=== PATIENT | male | born 1970 | race Hispanic/Latino ===

== ENCOUNTER 2017-11-15 01:36 | Emergency (ER) | payer SELFPAY ==
[2017-11-15 04:09] LABS: BASOPHILS % (AUTO) 0.3 % (0.0-5.0); EOSINOPHILS % (AUTO) 0.2 % (0.0-8.0); HEMATOCRIT 37.4 % (42-54); LYMPHOCYTES % (AUTO) 29.3 % (21.0-51.0); MEAN CORPUSCULAR HEMOGLOBIN 30.4 pg (27.0-33.0); MEAN CORPUSCULAR HGB CONC 34.3 g/dL (32.0-36.0); MEAN CORPUSCULAR VOLUME 88.8 fL (79-99); MONOCYTES % (AUTO) 2.9 % (3.0-13.0); NEUTROPHILS % (AUTO) 67.3 % (40.0-77.0); NUCLEATED RED BLOOD CELLS 0.1 % (0.0-0.19); PLATELET COUNT (AUTO) 321 K/uL (130-400); RED BLOOD CELL COUNT(AUTO) 4.21 MIL/uL (4.50-6.20); RED CELL DISTRIBUTION WIDTH 13.9 % (11.0-15.5); WHITE BLOOD COUNT (AUTO) 10.7 K/uL (4.8-10.8)
[2017-11-15 04:19] LABS: CREATININE 0.5 mg/dL (0.5-1.5); POTASSIUM 3.6 mmol/L (3.5-5.1)
[2017-11-15 04:27] LABS: ALBUMIN 3.3 g/dL (3.5-5.0); BILIRUBIN,TOTAL 0.5 mg/dL (0.2-1.0); TOTAL PROTEIN, SERUM 7.3 g/dL (6.0-8.3)
[2017-11-15] MEDS ORDERED: TETANUS/DIPHTHERIA TOXOID [ADULT] 0.5 ML VIAL IM ONE (05:10)
[2017-11-15] MEDS ORDERED: ACETAMINOPHEN 325 MG TAB ONE (08:13)
[2017-11-15] MEDS ORDERED: SODIUM CHLORIDE 0.9% 1000ML 2,000 ML IV ONE (08:14)
[2017-11-15] MEDS ORDERED: THIAMINE HCL 100 MG/ML 2ML VIAL ONE (08:14)
[2017-11-15 11:05] LABS: CREATININE 0.5 mg/dL (0.5-1.5); POTASSIUM 3.3 mmol/L (3.5-5.1)
== END 2017-11-15 16:29 | disposition left against medical advice (07) ==
LOC: EDH 01:36
DX: S90.01XA Contusion of right ankle, initial encounter (principal); S80.212A Abrasion, left knee, initial encounter; S80.211A Abrasion, right knee, initial encounter; M25.521 Pain in right elbow; M79.631 Pain in right forearm; F31.9 Bipolar disorder, unspecified; I10 Essential (primary) hypertension; Z72.0 Tobacco use; V29.9XXA Motorcycle rider (driver) (passenger) injured in unspecified traffic accident, initial encounter; Y93.89 Activity, other specified; Y92.89 Other specified places as the place of occurrence of the external cause; Y99.8 Other external cause status
CPT/HCPCS: 36415; 73560; 73610; 80048; 80053; 85025; 90471; 90714; 96365; 99285; G0480 ×2; J3411; J7030

== ENCOUNTER 2018-02-10 18:18 | Emergency (ER) | payer OTHER ==
[2018-02-10] MEDS ORDERED: ONDANSETRON ODT 4 MG TAB ONE (18:39)
[2018-02-10] MEDS ORDERED: DICYCLOMINE HCL 10 MG/ML 2ML AMP IM ONE (18:40)
[2018-02-10] MEDS ORDERED: HYDROXYZINE HCL 25 MG TABLET ONE (18:41)
== END 2018-02-10 19:12 | disposition home or self-care (01) ==
LOC: EDH 18:18
DX: F41.1 Generalized anxiety disorder (principal); F10.10 Alcohol abuse, uncomplicated; F31.9 Bipolar disorder, unspecified; I10 Essential (primary) hypertension; Z72.0 Tobacco use
CPT/HCPCS: 93005; 96372; 99284; J0500

== ENCOUNTER 2019-01-30 01:47 | Inpatient (IN) | payer OTHER ==
[~2019-01-30] VITALS: Ht 177.8 cm; Wt 86.4 kg
[2019-01-30] MEDS ORDERED: IOHEXOL-350 50ML VIAL IV ONE (02:53)
[2019-01-30] MEDS ORDERED: ZOSYN 3.375GM+NS 50ML 50 ML IV ONE (02:53)
[2019-01-30 02:56] LABS: BASOPHILS % (AUTO) 0.9 % (0.0-5.0); EOSINOPHILS % (AUTO) 0.2 % (0.0-8.0); HEMATOCRIT 42.3 % (42-54); LYMPHOCYTES % (AUTO) 22.7 % (21.0-51.0); MEAN CORPUSCULAR HEMOGLOBIN 31.8 pg (27.0-33.0); MEAN CORPUSCULAR HGB CONC 35.5 g/dL (32.0-36.0); MEAN CORPUSCULAR VOLUME 89.5 fL (79-99); MONOCYTES % (AUTO) 6.3 % (3.0-13.0); NEUTROPHILS % (AUTO) 69.9 % (40.0-77.0); PLATELET COUNT (AUTO) 181 K/uL (130-400); RED BLOOD CELL COUNT(AUTO) 4.72 MIL/uL (4.50-6.20); RED CELL DISTRIBUTION WIDTH 15.4 % (11.0-15.5); WHITE BLOOD COUNT (AUTO) 9.1 K/uL (4.8-10.8)
[2019-01-30 03:05] LABS: CREATININE 0.5 mg/dL (0.5-1.5); POTASSIUM 3.6 mmol/L (3.5-5.1)
[2019-01-30 03:43] LABS: INR 1.17 (0.85-1.15); PARTIAL THROMBOPLASTIN TIME 35.5 SEC (26.3-35.5); PROTHROMBIN TIME 12.2 SEC (9.6-11.6)
[2019-01-30] MEDS ORDERED: TETANUS/DIPHTHERIA TOXOID [ADULT] 0.5 ML VIAL IM ONE (03:54)
[2019-01-30] MEDS: SODIUM CHLORIDE 0.9% 1000ML 1,000 ML IV SCH ×2 (05:43→16:13)
[2019-01-30] MEDS ORDERED: HYDROCODONE/ACETAMINOPHEN 5/325 MG TAB PO PRN (05:45)
[2019-01-30] MEDS: CLINDAMYCIN 600 MG/D5% WATER 50 ML IV SCH ×3 (05:45→22:14)
[2019-01-30] MEDS ORDERED: SODIUM CHLORIDE 0.9% 1000ML 1,000 ML IV ONE (05:49)
[2019-01-30] MEDS ORDERED: CLINDAMYCIN 600 MG/D5% WATER 50 ML IV ONE (05:53)
[2019-01-30] MEDS ORDERED: HYDROCODONE/ACETAMINOPHEN 5/325 MG TAB ONE (07:34)
[2019-01-30 13:22] VITALS: BP 163/99
[2019-01-30] MEDS: HYDROCODONE/ACETAMINOPHEN 5/325 MG TAB PO PRN ×2 (14:26→20:52)
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
[2019-01-30] MEDS ORDERED: PHARMACY COMMUNICATION MISC PRN (18:00)
[2019-01-30] MEDS ORDERED: LORAZEPAM 2 MG/ML 1 ML VIAL IVP PRN (18:00)
[2019-01-30 20:00] VITALS: BP 162/85
[2019-01-30] MEDS: CHLORDIAZEPOXIDE HCL 25 MG CAP PO PRN (22:14)
[2019-01-30 23:52] VITALS: BP 157/99
[2019-01-31 04:00] VITALS: BP 141/80
[2019-01-31] MEDS: CLINDAMYCIN 600 MG/D5% WATER 50 ML IV SCH ×3 (05:18→21:14)
[2019-01-31 05:19] LABS: BASOPHILS % (AUTO) 0.4 % (0.0-5.0); EOSINOPHILS % (AUTO) 0.2 % (0.0-8.0); HEMATOCRIT 39.4 % (42-54); MEAN CORPUSCULAR HEMOGLOBIN 30.7 pg (27.0-33.0); MEAN CORPUSCULAR HGB CONC 34.3 g/dL (32.0-36.0); MEAN CORPUSCULAR VOLUME 89.5 fL (79-99); MONOCYTES % (AUTO) 6.7 % (3.0-13.0); NEUTROPHILS % (AUTO) 75.7 % (40.0-77.0); PLATELET COUNT (AUTO) 113 K/uL (130-400); RED CELL DISTRIBUTION WIDTH 15.6 % (11.0-15.5); WHITE BLOOD COUNT (AUTO) 5.8 K/uL (4.8-10.8)
[2019-01-31] MEDS: SODIUM CHLORIDE 0.9% 1000ML 1,000 ML IV SCH ×2 (05:19→17:00)
[2019-01-31 05:34] LABS: CREATININE 0.5 mg/dL (0.5-1.5); POTASSIUM 3.4 mmol/L (3.5-5.1)
[2019-01-31 07:30] VITALS: BP 159/91
[2019-01-31] MEDS ORDERED: POTASSIUM CHLORIDE 10% ELIXIR 20 MEQ/15 ML UDCUP PO PRN (07:30)
[2019-01-31] MEDS ORDERED: POTASSIUM CHLORIDE 10MEQ/100ML 100 ML IV PRN (07:30)
[2019-01-31] MEDS ORDERED: LIDOCAINE HCL-MPF 1% 2ML VIAL IVP PRN (07:30)
[2019-01-31] MEDS ORDERED: PROMETHAZINE HCL 25 MG TABLET PO PRN (09:00)
[2019-01-31] MEDS ORDERED: ACETAMINOPHEN EXTRA STRENGTH 500 MG TABLET PO PRN (09:00)
[2019-01-31] MEDS ORDERED: ONDANSETRON HCL 4 MG/2 ML VIAL IV PRN (09:00)
[2019-01-31] MEDS ORDERED: ONDANSETRON HCL 4 MG/2 ML VIAL ONE (09:03)
[2019-01-31] MEDS: POTASSIUM CHLORIDE 20 MEQ ERTAB PO PRN ×2 (09:04→13:27)
[2019-01-31] MEDS: HYDROCODONE/ACETAMINOPHEN 5/325 MG TAB PO PRN ×4 (09:05→23:42)
[2019-01-31] MEDS ORDERED: LISI-613 PO (10:57)
[2019-01-31 11:00] VITALS: BP 149/99
--- NOTE | 2019-01-31 15:17 | NUR ---
JULIA JAMES PA FOR DR. RICO PER PA, DR. RICO WILL NOT DO INTERVENTIONS ON PATIENT. RECOMMENDATIONS FOR PLASTIC SURGEON OR ANOTHER SURGEON WHO WILL WORK ON FACIAL CELLULITIS. WILL CALL PCP AND INFORM ABOUT RECOMMENDATIONS. WILL MONITOR PT CLOSELY. WOUND CULTURE OBTAIN FROM DRAINING SITE FROM RIGHT FACE/CHEEK.
[2019-01-31 16:00] VITALS: BP 158/98
[2019-01-31] MEDS: HYDRALAZINE HCL 20 MG/ML VIAL IV PRN (16:57)
[2019-01-31 20:00] VITALS: BP_SYST 139; BP_DIAS 65; BP_DIAS 86
[2019-01-31] MEDS: CHLORDIAZEPOXIDE HCL 25 MG CAP PO PRN (21:40)
[2019-02-01] VITALS (7 sets, daily range): BP systolic 136–163; BP diastolic 75–97
[2019-02-01 04:49] LABS: BASOPHILS % (AUTO) 0.3 % (0.0-5.0); EOSINOPHILS % (AUTO) 0.7 % (0.0-8.0); HEMATOCRIT 38.3 % (42-54); LYMPHOCYTES % (AUTO) 22.5 % (21.0-51.0); MEAN CORPUSCULAR HEMOGLOBIN 31.4 pg (27.0-33.0); MEAN CORPUSCULAR HGB CONC 34.6 g/dL (32.0-36.0); MEAN CORPUSCULAR VOLUME 90.7 fL (79-99); MONOCYTES % (AUTO) 5.2 % (3.0-13.0); NEUTROPHILS % (AUTO) 71.3 % (40.0-77.0); PLATELET COUNT (AUTO) 104 K/uL (130-400); RED BLOOD CELL COUNT(AUTO) 4.22 MIL/uL (4.50-6.20); RED CELL DISTRIBUTION WIDTH 15.5 % (11.0-15.5); WHITE BLOOD COUNT (AUTO) 4.2 K/uL (4.8-10.8)
[2019-02-01 04:51] LABS: CREATININE 0.5 mg/dL (0.5-1.5); POTASSIUM 3.8 mmol/L (3.5-5.1)
[2019-02-01] MEDS: CLINDAMYCIN 600 MG/D5% WATER 50 ML IV SCH ×3 (05:20→21:45)
[2019-02-01] MEDS: HYDROCODONE/ACETAMINOPHEN 5/325 MG TAB PO PRN ×4 (05:27→21:46)
[2019-02-01] MEDS ORDERED: TRAM50TA4 PO (06:37)
[2019-02-01] MEDS ORDERED: FAMO20TA8 PO (06:37)
[2019-02-01] MEDS ORDERED: DONE10TA43 PO (06:37)
[2019-02-01] MEDS ORDERED: AMLO5TAB9 PO (06:37)
[2019-02-01] MEDS ORDERED: LORA0.5T2 PO (06:37)
[2019-02-01] MEDS ORDERED: OLAN2.5T3 PO (06:37)
[2019-02-01] MEDS ORDERED: MULT-248 PO (06:37)
[2019-02-01] MEDS ORDERED: TYLENOL ARTHRITIS (06:37)
[2019-02-01] MEDS ORDERED: ZINC220C6 PO (06:37)
[2019-02-01] MEDS ORDERED: MENT118G TP (06:37)
[2019-02-01] MEDS: SODIUM CHLORIDE 0.9% 1000ML 1,000 ML IV SCH ×3 (08:42→20:08)
[2019-02-01] MEDS ORDERED: IOHEXOL-350 50ML VIAL IV ONE (12:22)
[2019-02-01] MEDS: CHLORDIAZEPOXIDE HCL 25 MG CAP PO PRN (21:46)
[2019-02-02 03:49] VITALS: BP 151/96
[2019-02-02 04:40] LABS: BASOPHILS % (AUTO) 0.2 % (0.0-5.0); EOSINOPHILS % (AUTO) 1.2 % (0.0-8.0); HEMATOCRIT 38.4 % (42-54); LYMPHOCYTES % (AUTO) 31.6 % (21.0-51.0); MEAN CORPUSCULAR HEMOGLOBIN 30.5 pg (27.0-33.0); MEAN CORPUSCULAR VOLUME 89.9 fL (79-99); MONOCYTES % (AUTO) 8.9 % (3.0-13.0); NEUTROPHILS % (AUTO) 58.1 % (40.0-77.0); NUCLEATED RED BLOOD CELLS 0.1 % (0.0-0.19); PLATELET COUNT (AUTO) 118 K/uL (130-400); RED BLOOD CELL COUNT(AUTO) 4.27 MIL/uL (4.50-6.20); RED CELL DISTRIBUTION WIDTH 15.3 % (11.0-15.5); WHITE BLOOD COUNT (AUTO) 3.1 K/uL (4.8-10.8)
[2019-02-02 04:41] LABS: CREATININE 0.6 mg/dL (0.5-1.5); POTASSIUM 3.7 mmol/L (3.5-5.1)
[2019-02-02] MEDS: CLINDAMYCIN 600 MG/D5% WATER 50 ML IV SCH ×3 (05:45→22:18)
[2019-02-02] MEDS: HYDROCODONE/ACETAMINOPHEN 5/325 MG TAB PO PRN ×3 (07:46→18:57)
[2019-02-02 08:02] VITALS: BP 144/99
--- NOTE | 2019-02-02 08:59 | NUR ---
DR. CLEMENCIA CLAY AWARE OF CONSULT. ORDERS PLACED FOR I&D OF RIGHT SIDE PERIORBITAL CELLULITIS FOR TOMORROW 02/03/19, STATES NO SPECIFIC TIME, WANTS TO BE CALLED BY OR WITH AVAILABLE TIMES.
[2019-02-02 11:53] VITALS: BP 147/91
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
[2019-02-02] MEDS ORDERED: PERMETHRIN CREAM 5% 60GM TUBE TP SCH (13:30)
[2019-02-02] MEDS: SODIUM CHLORIDE 0.9% 1000ML 1,000 ML IV SCH ×2 (13:53→23:04)
--- NOTE | 2019-02-02 14:30 | NUR ---
RIGHT HAND SKIN RASH PATIENT APPEARS TO HAVE SEVERAL SMALL, RED SKIN LESIONS TO ANTERIOR SIDE RIGHT HAND, AND APPEARS TO SPREAD INSIDE OF THE RIGHT HAND FINGERS. PATIENT STATES AREA DOES NOT HURT OR ITCH. REPORTED FINDING TO GUSTAVO WATSON NP FOR DR. MORALES AND HE INSPECTED PATIENTS RIGHT HAND. GUSTAVO WATSON NP TOLD PATIENT THE RASH LOOKS LIKE SCABIES. ORDERS PLACED TO PUT PATIENT ON CONTACT ISOLATION AND TOPICAL CREAMS.
[2019-02-02 16:48] VITALS: BP 147/97
[2019-02-02] MEDS: MUPIROCIN OINTMENT 22 GM TUBE TP SCH ×2 (17:32→20:11)
[2019-02-02 19:43] VITALS: BP 140/84
[2019-02-02] MEDS: MORPHINE SULFATE 2 MG/ML 1ML SYG IVP PRN (22:19)
[2019-02-02] MEDS ORDERED: HYDROCODONE/ACETAMINOPHEN 5/325 MG TAB ONE (22:57)
[2019-02-03] VITALS (22 sets, daily range): BP systolic 141–188; BP diastolic 84–111
[2019-02-03] MEDS: MORPHINE SULFATE 2 MG/ML 1ML SYG IVP PRN ×3 (05:00→14:53)
[2019-02-03] MEDS: CLINDAMYCIN 600 MG/D5% WATER 50 ML IV SCH ×3 (05:12→20:21)
[2019-02-03] MEDS: MUPIROCIN OINTMENT 22 GM TUBE TP SCH ×3 (09:00→20:27)
[2019-02-03] MEDS ORDERED: ROCURONIUM 10MG/1ML SYR 10 MG/ML ML ONE (12:45)
[2019-02-03] MEDS ORDERED: PROPOFOL 10 MG/ML 20ML VIAL IV ONE (12:45)
[2019-02-03] MEDS ORDERED: SUCCINYLCHOLINE 200MG/10ML SYR ONE ×2 (12:45→12:56)
[2019-02-03] MEDS ORDERED: LIDOCAINE PF 2% 5ML ABBOJECT ONE (12:45)
[2019-02-03] MEDS ORDERED: MIDAZOLAM HCL 1 MG/ML 2ML VIAL ONE (12:45)
[2019-02-03] MEDS ORDERED: FENTANYL CITRATE PF 50 MCG/1 ML 2ML VIAL ONE ×4 (12:45→14:01)
[2019-02-03] MEDS ORDERED: LACTATED RINGERS 1000ML 1,000 ML IV ONE (12:46)
--- NOTE | 2019-02-03 13:00 | NUR ---
DR KHANNA CALLED STATED TO PULL OUT 1-2 INCHES OF THE PACKING EVERY DAY AND KEEP PT FOR MORE A COUPLE OF DAYS FOR IV ANTIBIOTICS RECOMMENDED NEHAL FOR PT
[2019-02-03] MEDS ORDERED: CEFAZOLIN SODIUM 1 GM VIAL ONE (13:05)
[2019-02-03] MEDS: HYDRALAZINE HCL 20 MG/ML VIAL IV PRN (14:15)
[2019-02-03] MEDS: MORPHINE SULFATE 4 MG/1ML SYG IV PRN (18:52)
[2019-02-03] MEDS: SODIUM CHLORIDE 0.9% 1000ML 1,000 ML IV SCH ×2 (19:43→20:00)
--- NOTE | 2019-02-03 21:30 | NUR ---
PT WAS ATTEMPTING TO OPEN TURK PACKET, STATED HE FORGOT HE HAD THE STRING AND USED HIS RIGHT SIDE TO PULL THE PACKET AND HE PULLED PART OF THE INCISION STRING ABOUT ONE INCH. HE STARTED TO BLEED AND GAUZE AND PRESSURE WERE APPLIED TO INNER CHEEK RIGHT AREA NEAR INCISION. PT FELT SCARED AND GOT VERY ANXIOUS DUE TO THE BLEEDING. SURGEON WAS IMMEDIATELY NOTIFIED AND STATED TO APPLY PRESSURE. THAT HE WOULD NOT BE ABLE TO COME IN AT THE MOMENT.
[2019-02-03] MEDS: HYDROCODONE/ACETAMINOPHEN 5/325 MG TAB PO PRN (21:47)
--- NOTE | 2019-02-03 23:00 | NUR ---
PT IS NOW STABLE. BLEEDING HAS STOPPED. NO DISTRESS NOTED. NOROCO GIVEN PRN. DUE TO PAIN. PT AWARE THAT MORPHINE IS DUE AT 0100. SURGEON CALLED AGAIN. DR. KHANNA AND HE WAS UPDATED ON PT STATUS.
[2019-02-04] VITALS (7 sets, daily range): BP systolic 134–163; BP diastolic 81–106
[2019-02-04] MEDS: MORPHINE SULFATE 4 MG/1ML SYG IV PRN (01:18)
[2019-02-04] MEDS: SODIUM CHLORIDE 0.9% 1000ML 1,000 ML IV SCH ×2 (04:40→20:06)
[2019-02-04] MEDS: HYDROCODONE/ACETAMINOPHEN 5/325 MG TAB PO PRN ×4 (04:40→20:16)
[2019-02-04 04:45] LABS: BASOPHILS % (AUTO) 0.1 % (0.0-5.0); EOSINOPHILS % (AUTO) 0.6 % (0.0-8.0); HEMATOCRIT 38.7 % (42-54); LYMPHOCYTES % (AUTO) 24.4 % (21.0-51.0); MEAN CORPUSCULAR HEMOGLOBIN 30.4 pg (27.0-33.0); MEAN CORPUSCULAR HGB CONC 33.9 g/dL (32.0-36.0); MEAN CORPUSCULAR VOLUME 89.6 fL (79-99); MONOCYTES % (AUTO) 11.2 % (3.0-13.0); NEUTROPHILS % (AUTO) 63.7 % (40.0-77.0); PLATELET COUNT (AUTO) 108 K/uL (130-400); RED BLOOD CELL COUNT(AUTO) 4.32 MIL/uL (4.50-6.20); RED CELL DISTRIBUTION WIDTH 15.7 % (11.0-15.5); WHITE BLOOD COUNT (AUTO) 4.3 K/uL (4.8-10.8)
[2019-02-04] MEDS: CLINDAMYCIN 600 MG/D5% WATER 50 ML IV SCH ×3 (04:46→20:16)
[2019-02-04 04:55] LABS: CREATININE 0.6 mg/dL (0.5-1.5)
[2019-02-04] MEDS: MUPIROCIN OINTMENT 22 GM TUBE TP SCH ×2 (09:00→20:17)
[2019-02-04] MEDS: AMOXICILLIN/POTASSIUM CLAV 875-125 TABLET PO SCH (18:41)
[2019-02-05] MEDS: HYDROCODONE/ACETAMINOPHEN 5/325 MG TAB PO PRN ×5 (00:21→20:09)
[2019-02-05 04:09] LABS: BASOPHILS % (AUTO) 0.3 % (0.0-5.0); EOSINOPHILS % (AUTO) 1.3 % (0.0-8.0); HEMATOCRIT 37.3 % (42-54); LYMPHOCYTES % (AUTO) 29.8 % (21.0-51.0); MEAN CORPUSCULAR HEMOGLOBIN 30.9 pg (27.0-33.0); MEAN CORPUSCULAR HGB CONC 34.3 g/dL (32.0-36.0); MEAN CORPUSCULAR VOLUME 90.1 fL (79-99); MONOCYTES % (AUTO) 11.4 % (3.0-13.0); NEUTROPHILS % (AUTO) 57.2 % (40.0-77.0); PLATELET COUNT (AUTO) 94 K/uL (130-400); RED BLOOD CELL COUNT(AUTO) 4.13 MIL/uL (4.50-6.20); RED CELL DISTRIBUTION WIDTH 15.8 % (11.0-15.5); WHITE BLOOD COUNT (AUTO) 3.7 K/uL (4.8-10.8)
[2019-02-05 04:16] LABS: CREATININE 0.6 mg/dL (0.5-1.5)
[2019-02-05 04:19] VITALS: BP 137/79
[2019-02-05] MEDS: CLINDAMYCIN 600 MG/D5% WATER 50 ML IV SCH ×3 (04:32→20:07)
[2019-02-05] MEDS: AMOXICILLIN/POTASSIUM CLAV 875-125 TABLET PO SCH ×2 (04:32→16:29)
[2019-02-05 07:47] VITALS: BP 164/99
--- NOTE | 2019-02-05 09:45 | NUR ---
DRESSING CHANGE REMOVED APPROXIMATELY 2 INCHES OF IODOFORM GAUZE PACKING FROM RIGHT INNER CHEEK INCISION SITE, TRIMMED EXCESS IODOFORM PACKING AND SECURED WITH TAPE. ALSO REAPPLIED RIGHT OUTER CHEEK, CLEANSED WITH BETADINE, 4X4 GAUZE AND SECURED WITH TAPE.
[2019-02-05 11:57] VITALS: BP 132/79
[2019-02-05] MEDS: SODIUM CHLORIDE 0.9% 1000ML 1,000 ML IV SCH (12:08)
[2019-02-05] MEDS: MUPIROCIN OINTMENT 22 GM TUBE TP SCH ×3 (12:09→20:10)
[2019-02-05 15:46] VITALS: BP 140/92
[2019-02-05 19:20] VITALS: BP 151/98
[2019-02-05 23:31] VITALS: BP 142/93
[2019-02-06] MEDS: SODIUM CHLORIDE 0.9% 1000ML 1,000 ML IV SCH ×2 (00:26→07:43)
[2019-02-06] MEDS: HYDROCODONE/ACETAMINOPHEN 5/325 MG TAB PO PRN ×4 (00:27→13:59)
[2019-02-06 03:42] VITALS: BP 130/73
[2019-02-06 04:06] LABS: BASOPHILS % (AUTO) 0.4 % (0.0-5.0); EOSINOPHILS % (AUTO) 2.2 % (0.0-8.0); HEMATOCRIT 37.1 % (42-54); LYMPHOCYTES % (AUTO) 34.3 % (21.0-51.0); MEAN CORPUSCULAR HEMOGLOBIN 31.3 pg (27.0-33.0); MEAN CORPUSCULAR HGB CONC 34.7 g/dL (32.0-36.0); MEAN CORPUSCULAR VOLUME 90.2 fL (79-99); NEUTROPHILS % (AUTO) 50.1 % (40.0-77.0); NUCLEATED RED BLOOD CELLS 0.1 % (0.0-0.19); PLATELET COUNT (AUTO) 106 K/uL (130-400); RED BLOOD CELL COUNT(AUTO) 4.11 MIL/uL (4.50-6.20); RED CELL DISTRIBUTION WIDTH 15.7 % (11.0-15.5); WHITE BLOOD COUNT (AUTO) 3.1 K/uL (4.8-10.8)
[2019-02-06 04:14] LABS: CREATININE 0.6 mg/dL (0.5-1.5); POTASSIUM 3.7 mmol/L (3.5-5.1)
[2019-02-06] MEDS: AMOXICILLIN/POTASSIUM CLAV 875-125 TABLET PO SCH ×2 (05:44→16:48)
[2019-02-06] MEDS: CLINDAMYCIN 600 MG/D5% WATER 50 ML IV SCH ×2 (05:44→13:48)
[2019-02-06 07:39] VITALS: BP 144/89
[2019-02-06] MEDS: MUPIROCIN OINTMENT 22 GM TUBE TP SCH ×2 (09:53→14:00)
--- NOTE | 2019-02-06 11:00 | NUR ---
DR. CLEMENCIA CLAY PAGED REGARDING DISCHARGE ORDERS. REPLIED AND GAVE ORDERS.
[2019-02-06 11:15] VITALS: BP 142/87
--- NOTE | 2019-02-06 16:00 | NUR ---
WOUND DRESSING TEACHING TEACHBACK USED TO INSTRUCT PATIENT ON WOUND CARE DRESSING CHANGES. PATIENT STATES HE FEELS COMFORTABLE PERFORMING WOUND CHANGES AT HOME. INSTRUCTED PATIENT ON HAND HYGIENE, CAREFULLY REMOVE 1-2 INCHES OF RIGHT INNER CHEEK IODOFORM PACKING, USE CLEAN SCISSORS TO TIME EXCESS IODOFORM PACKING AND TO LEAVE ENOUGH PACKING TO TAPE LOOSE END TO OUTER MOUTH AND SECURE LOOSE END OF IODOFORM PACKING WITH TAPE. PATIENT SUCCESSFULLY ABLE TO PERFORM WOUND DRESSING CHANGE WITH MINIMAL ASSISTANCE.
[2019-02-06 16:03] VITALS: BP 141/89
--- NOTE | 2019-02-06 17:10 | NUR ---
Discharge instructions given to patient on new prescriptions and follow up appointments. Provided him with a list of physicians due to he does not have a primary care provider. 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 Instructed to always let health care providers removed them per policy and for assessment of the tip.
== END 2019-02-06 17:00 | disposition home or self-care (01) | DRG 580 ==
LOC: EDH 01:47 → EDHIP 01:48 → 4BH 12:49
PROVIDERS: ADMIT Internal Medicine; ATTEND Internal Medicine
PROC: 0C940ZZ Drainage of Buccal Mucosa, Open Approach (ICD-10-PCS; principal; 2019-01-30)
PROC: 3E0234Z Introduction of Serum, Toxoid and Vaccine into Muscle, Percutaneous Approach (ICD-10-PCS; 2019-01-30)
DX: L03.213 Periorbital cellulitis (principal); K12.2 Cellulitis and abscess of mouth; L02.01 Cutaneous abscess of face; S00.81XA Abrasion of other part of head, initial encounter; F41.9 Anxiety disorder, unspecified; E66.9 Obesity, unspecified; Z68.27 Body mass index [BMI] 27.0-27.9, adult; E87.6 Hypokalemia; F12.90 Cannabis use, unspecified, uncomplicated; F17.210 Nicotine dependence, cigarettes, uncomplicated; F31.9 Bipolar disorder, unspecified; I10 Essential (primary) hypertension; J32.0 Chronic maxillary sinusitis; J34.2 Deviated nasal septum; L03.211 Cellulitis of face; Y04.0XXA Assault by unarmed brawl or fight, initial encounter; Z23 Encounter for immunization
CPT/HCPCS: 36415; 70450; 70487; 70488; 80048; 85025; 85610; 85730; 87070; 87076; 87077; 87186; 90714; G0378; G0480; J0330; J0360; J0690; J2001; J2250; J2270; J2405; J2543; J2704; J3010; J3490; J7030; J7120; Q9967

== ENCOUNTER 2019-07-19 22:20 | Emergency (ER) | payer OTHER, SELFPAY ==
[~2019-07-19 22:20] MED LIST: AMLO5TAB9 PO; DONE10TA43 PO; FAMO20TA8 PO; LORA0.5T2 PO; MENT118G TP; MULT-248 PO; OLAN2.5T3 PO; TRAM50TA4 PO; TYLENOL ARTHRITIS; ZINC220C6 PO
[2019-07-19 23:43] LABS: BASOPHILS % (AUTO) 0.5 % (0.0-5.0); EOSINOPHILS % (AUTO) 0.3 % (0.0-8.0); HEMATOCRIT 44.2 % (42-54); LYMPHOCYTES % (AUTO) 34.7 % (21.0-51.0); MEAN CORPUSCULAR HEMOGLOBIN 30.6 pg (27.0-33.0); MEAN CORPUSCULAR HGB CONC 35.1 g/dL (32.0-36.0); MEAN CORPUSCULAR VOLUME 87.3 fL (79-99); MONOCYTES % (AUTO) 5.3 % (3.0-13.0); NEUTROPHILS % (AUTO) 59.2 % (40.0-77.0); NUCLEATED RED BLOOD CELLS 0.1 % (0.0-0.19); PLATELET COUNT (AUTO) 186 K/uL (130-400); RED BLOOD CELL COUNT(AUTO) 5.07 MIL/uL (4.50-6.20); RED CELL DISTRIBUTION WIDTH 14.3 % (11.0-15.5); WHITE BLOOD COUNT (AUTO) 8.8 K/uL (4.8-10.8)
[2019-07-19 23:48] LABS: CREATININE 0.5 mg/dL (0.5-1.5); POTASSIUM 3.7 mmol/L (3.5-5.1)
== END 2019-07-20 10:30 | disposition home or self-care (01) ==
LOC: EDH 22:20
DX: S80.212A Abrasion, left knee, initial encounter (principal); F10.129 Alcohol abuse with intoxication, unspecified; F41.9 Anxiety disorder, unspecified; F31.9 Bipolar disorder, unspecified; I10 Essential (primary) hypertension; Z72.0 Tobacco use; V19.9XXA Pedal cyclist (driver) (passenger) injured in unspecified traffic accident, initial encounter; Y93.89 Activity, other specified; Y92.89 Other specified places as the place of occurrence of the external cause; Y99.8 Other external cause status
CPT/HCPCS: 36415 ×2; 80048; 85025; 99284; G0480 ×2

== ENCOUNTER 2019-11-12 20:27 | Inpatient (IN) | payer OTHER ==
[~2019-11-12] VITALS: Ht 172.7 cm; Wt 82.8 kg
[~2019-11-12 20:27] MED LIST changes: +EPINEPHRINE 0.1 MG/ML 10 ML SYG IVP ONE; +NALOXONE HCL 0.4 MG/1 ML ML IVP ONE; +SODIUM BICARB 8.4% 50ML SYRINGE IVP ONE
[2019-11-12] MEDS ORDERED: PROPOFOL 1000 MG/100 ML 100 ML IV ONE (20:56)
[2019-11-12] MEDS ORDERED: PROPOFOL 10 MG/ML 20ML VIAL IV ONE (20:57)
[2019-11-12 21:05] LABS: BASOPHILS % (AUTO) 0.4 % (0.0-5.0); HEMATOCRIT 35.2 % (42-54); LYMPHOCYTES % (AUTO) 7.1 % (21.0-51.0); MEAN CORPUSCULAR HEMOGLOBIN 30.5 pg (27.0-33.0); MEAN CORPUSCULAR HGB CONC 34.7 g/dL (32.0-36.0); MONOCYTES % (AUTO) 5.7 % (3.0-13.0); NEUTROPHILS % (AUTO) 84.8 % (40.0-77.0); PLATELET COUNT (AUTO) 93 K/uL (130-400); RED CELL DISTRIBUTION WIDTH 14.1 % (11.0-15.5); WHITE BLOOD COUNT (AUTO) 10.1 K/uL (4.8-10.8)
[2019-11-12 21:09] LABS: APPEARANCE,URINE CLOUDY (CLEAR); BILIRUBIN,URINE SMALL (NEGATIVE); COLOR,URINE YELLOW (YELLOW); GLUCOSE, URINE (UA) NEGATIVE (NEGATIVE); KETONES,URINE 5 mg/dL (NEGATIVE); LEUKOCYTE ESTERASE ,URINE NEGATIVE (NEGATIVE); NITRATE,URINE NEGATIVE (NEGATIVE); OCCULT BLOOD,URINE LARGE (NEGATIVE); PH,URINE 5.5 (5.0-8.0); PROTEIN,URINE >=300 mg/dL (NEGATIVE)
[2019-11-12 21:22] LABS: BACTERIA,URINE Moderate /HPF (None Seen)
[2019-11-12 21:23] LABS: AMORPHOUS SEDIMENT,UR Moderate /LPF (None Seen); MUCUS,URINE Few LPF (None Seen)
[2019-11-12 21:25] LABS: AMPHET/METH SCREEN,URINE NEGATIVE (NEGATIVE); BARBITURATE SCREEN, URINE NEGATIVE (NEGATIVE); BENZODIAZEPINES SCREEN,URINE NEGATIVE (NEGATIVE); CANNABINOID SCREEN,URINE NEGATIVE (NEGATIVE); COCAINE SCREEN,URINE NEGATIVE (NEGATIVE); OPIATE SCREEN,URINE NEGATIVE (NEGATIVE); PHENCYCLIDINE SCREEN,URINE NEGATIVE (NEGATIVE)
[2019-11-12 21:36] LABS: ALANINE AMINOTRANSFERASE 75 U/L (12-78); ALBUMIN 2.5 g/dL (3.5-5.0); ASPARTATE AMINOTRANSFERASE 116 U/L (10-37); BILIRUBIN,TOTAL 1.8 mg/dL (0.2-1.0); CARBON DIOXIDE 20 mmol/L (21-32); CREATININE 0.6 mg/dL (0.5-1.5); GLOMERULAR FILTR. RATE CALC 152 mL/min (>60); GLUCOSE,RANDOM 100 mg/dL (70-105); MYOGLOBIN 272 ng/mL (10-92); POTASSIUM 3.5 mmol/L (3.5-5.1); SODIUM SERUM 111 mmol/L (136-145); TOTAL PROTEIN, SERUM 7.6 g/dL (6.0-8.3); TROPONIN I < 0.04 ng/mL (0.00-0.06); UREA NITROGEN, BLOOD 4 mg/dL (7-18)
[2019-11-12 21:37] LABS: CHLORIDE 77 mmol/L (101-111); CREATINE KINASE, TOTAL 1080 U/L (21-232)
[2019-11-12] MEDS ORDERED: ZOSYN 3.375GM+NS 50ML 50 ML IV ONE (21:53)
--- NOTE | 2019-11-12 22:00 | NUR ---
At this time I had ordered a CXR to reconfirmed ETT placement and based on CXR I had to advance ETT further in from 22 @ lips to 26 @ lips ER DR. Wallace confirmed what happened was when first CXR was taken patient was awake and ETT was being pulled in by patients heavy and tachypnick breathing, I placed anchor fast and was able to advance while CXR tech was at bedside to reconfirm placement will continue to monitor patient. Addendum: 11/13/19 at 0318 by WILBERTO LIEBERMAN RT Amended: Links added.
[2019-11-12 22:24] LABS: ABG HCO3 23.4 mmol/L (21.0-28.0); ABG OXYGEN SATURATION 69.9 % (95.0-99.0); ABG PCO2 57 mmHg (35-48)
[2019-11-12 22:33] LABS: ABG HCO3 22.1 mmol/L (21.0-28.0); ABG OXYGEN SATURATION 69.4 % (95.0-99.0); ABG PCO2 54 mmHg (35-48)
[2019-11-12] MEDS ORDERED: ONDANSETRON HCL 4 MG/2 ML VIAL IV PRN (22:45)
[2019-11-12] MEDS ORDERED: ZOSYN 3.375GM+NS 50ML 50 ML IV SCH (22:45)
[2019-11-12] MEDS ORDERED: FUROSEMIDE 10 MG/ML 4ML VIAL ONE (23:05)
[2019-11-12] MEDS ORDERED: LACTATED RINGERS 1000ML 1,000 ML IV SCH (23:15)
[2019-11-12] MEDS ORDERED: PHARMACY COMMUNICATION MISC SCH (23:30)
[2019-11-13] VITALS (58 sets, daily range): BP systolic 98–157; BP diastolic 50–100
[2019-11-13] LABS: INR 1.36 (0.85-1.15); PARTIAL THROMBOPLASTIN TIME 37.7 SEC (26.3-35.5); PROTHROMBIN TIME 14.5 SEC (9.6-11.6)
[2019-11-13] MEDS ORDERED: CISATRACURIUM BESYLATE 100 MG in SODIUM CHLORIDE 0.9% 100 ML IV SCH ×2
[2019-11-13] MEDS ORDERED: ESMOLOL HCL 2,500 MG in SODIUM CHLORIDE 0.9% 250 ML IV SCH ×2
[2019-11-13] MEDS ORDERED: VANCOMYCIN PROTOCOL PER PHARMACY IV SCH
[2019-11-13] MEDS ORDERED: VECURONIUM BROMIDE 10 MG ML IV ONE ×4 (00:19→03:58)
[2019-11-13 00:33] LABS: ABG BASE EXCESS -5.3 mmol/L (-2.0-3.0); ABG HCO3 23.8 mmol/L (21.0-28.0); ABG OXYGEN SATURATION 94.6 % (95.0-99.0); ABG PCO2 62 mmHg (35-48)
[2019-11-13] MEDS ORDERED: VECURONIUM BROMIDE 50 MG in SODIUM CHLORIDE 0.9% 50 ML IV SCH (01:00)
[2019-11-13] MEDS ORDERED: FENTANYL CITRATE PF 0.05 MG/ML 1,000 MCG in SODIUM CHLORIDE 0.9% 100 ML IVPB SCH ×3 (01:00)
[2019-11-13] MEDS ORDERED: PHARMACY COMMUNICATION MISC SCH (01:15)
[2019-11-13] MEDS ORDERED: LACTATED RINGERS 1000ML IV STA (01:21)
[2019-11-13] MEDS ORDERED: LACTATED RINGERS 1000ML 1,000 ML IV ONE (01:26)
[2019-11-13] MEDS ORDERED: FENTANYL 1000MCG+NS 100ML 100 ML ONE (01:33)
[2019-11-13] MEDS: IPRATROPIUM/ALBUTEROL SULFATE 3 ML SOLUTION IH SCH ×6 (01:51→21:49)
[2019-11-13] MEDS: MIDAZOLAM HCL 50 MG in SODIUM CHLORIDE 0.9% 50 ML IV SCH ×2 (02:05→14:16)
[2019-11-13] MEDS: AZITHROMYCIN 500MG+NS 250ML 250 ML IV SCH (02:06)
[2019-11-13] MEDS: HEPARIN SODIUM 5000UNIT/ML 1ML VIAL SQ SCH ×2 (02:08→14:23)
[2019-11-13] MEDS: METHYLPREDNISOLONE SOD SUCC 40MG/ML 1ML IVP SCH ×3 (02:24→16:01)
[2019-11-13] MEDS: MEROPENEM 1 GM VIAL IVP SCH ×3 (02:24→16:01)
[2019-11-13 04:06] LABS: BASOPHILS % (AUTO) 0.4 % (0.0-5.0); HEMATOCRIT 36.6 % (42-54); MEAN CORPUSCULAR HEMOGLOBIN 30.4 pg (27.0-33.0); MEAN CORPUSCULAR HGB CONC 34.7 g/dL (32.0-36.0); MEAN CORPUSCULAR VOLUME 87.6 fL (79-99); MONOCYTES % (AUTO) 5.1 % (3.0-13.0); NEUTROPHILS % (AUTO) 88.1 % (40.0-77.0); PLATELET COUNT (AUTO) 86 K/uL (130-400); RED BLOOD CELL COUNT(AUTO) 4.18 MIL/uL (4.50-6.20); RED CELL DISTRIBUTION WIDTH 14.2 % (11.0-15.5)
[2019-11-13 04:18] LABS: ALBUMIN 2.3 g/dL (3.5-5.0); BILIRUBIN,TOTAL 1.8 mg/dL (0.2-1.0); CREATININE 0.8 mg/dL (0.5-1.5); MAGNESIUM 1.5 mg/dL (1.80-2.40); TOTAL PROTEIN, SERUM 7.1 g/dL (6.0-8.3)
[2019-11-13 04:37] LABS: CRP QUANTITATIVE 360.2 mg/L (0.00-9.0)
[2019-11-13 05:41] LABS: ABG BASE EXCESS -5.5 mmol/L (-2.0-3.0); ABG HCO3 25.3 mmol/L (21.0-28.0); ABG OXYGEN SATURATION 98.7 % (95.0-99.0); ABG PCO2 76 mmHg (35-48)
--- NOTE | 2019-11-13 06:19 | NUR ---
Patient admitted from ER, was intubated shortly after arriving and did not have any family with him at bedside to complete the admission questionnaire.
[2019-11-13] MEDS ORDERED: COMPOUND IV REFRIGERATED 1 EACH IVSOLN MISC PRN (06:30)
[2019-11-13] MEDS: PANTOPRAZOLE SODIUM 80 MG in SODIUM CHLORIDE 0.9% 100 ML IV SCH ×2 (06:53→15:48)
[2019-11-13] MEDS ORDERED: MAGNESIUM 2GM PREMIX 50ML 50 ML IV PRN (07:45)
[2019-11-13] MEDS: POTASSIUM CHLORIDE 20MEQ/100ML 100 ML IV PRN ×2 (07:58→09:49)
[2019-11-13] MEDS: LIDOCAINE HCL-MPF 1% 2ML VIAL IV PRN ×2 (07:58→09:49)
[2019-11-13] MEDS ORDERED: FUROSEMIDE 10 MG/ML 4ML VIAL IV SCH (09:00)
[2019-11-13 09:25] LABS: HEMATOCRIT 37.2 % (42-54); MEAN CORPUSCULAR HGB CONC 33.9 g/dL (32.0-36.0); MEAN CORPUSCULAR VOLUME 88.6 fL (79-99); PLATELET COUNT (AUTO) 72 K/uL (130-400); RED CELL DISTRIBUTION WIDTH 14.2 % (11.0-15.5); WHITE BLOOD COUNT (AUTO) 7.6 K/uL (4.8-10.8)
[2019-11-13] MEDS: FAMOTIDINE/PF 20 MG/2 ML VIAL IV SCH ×3 (09:38→20:53)
[2019-11-13] MEDS: VANCOMYCIN 1.25 GM in SODIUM CHLORIDE 0.9% 250 ML IV SCH ×2 (09:38→20:50)
[2019-11-13 09:40] LABS: ALBUMIN 2.3 g/dL (3.5-5.0); BILIRUBIN,TOTAL 1.6 mg/dL (0.2-1.0); CREATININE 0.9 mg/dL (0.5-1.5); POTASSIUM 3.8 mmol/L (3.5-5.1); TOTAL PROTEIN, SERUM 7.3 g/dL (6.0-8.3)
[2019-11-13 09:46] LABS: BAND NEUTROPHILS % (MANUAL) 15 % (0-2); METAMYELOCYTES % 3 % (0-0); MONOCYTES % (MANUAL) 4 % (2-9); REACTIVE LYMPHOCYTES 3 % (0-0); SEGMENTED NEUTROPHILS % 75 % (40-70)
[2019-11-13 09:47] LABS: PLATELET MORPHOLOGY COMMENT DECREASED
[2019-11-13 10:46] LABS: ABG HCO3 26.4 mmol/L (21.0-28.0); ABG OXYGEN SATURATION 90.6 % (95.0-99.0); ABG PCO2 61 mmHg (35-48)
[2019-11-13] MEDS: VECURONIUM BROMIDE 50 MG in SODIUM CHLORIDE 0.9% 50 ML IV SCH (11:10)
[2019-11-13] MEDS ORDERED: OCTREOTIDE ACETATE 100 MCG/ML AMP IV SCH (12:15)
[2019-11-13] MEDS: OCTREOTIDE ACETATE 500 MCG in SODIUM CHLORIDE 0.9% 97.5 ML IV SCH (14:10)
--- NOTE | 2019-11-13 14:12 | NUR ---
Initial/pending: Pt currently sedated and intubated. No family members at the bedside. Call placed to EC Markelias Kim Sr listed on Face sheet. Per pts father he is not willing to answer any questions until he receives updates on patients medical condition. Encouraged Mr. Kim to visit pt in person so that he can speak w nurse as medical information can not be discussed over the phone dt privacy concerns. CM to attempt to visit w family during visit.
[2019-11-13 14:36] LABS: CREATININE 0.8 mg/dL (0.5-1.5); POTASSIUM 3.9 mmol/L (3.5-5.1)
--- NOTE | 2019-11-13 15:33 | NUR ---
Nutrition Intervention: Nutrition consult for TF rec's. Pt. S/P Cardiac arrest requiring intubation and is currently on [facility]. vent. support. Pt. with oral OG tube in place. Diet: TF with Vital AF 1.2, 150ml water every 4 hrs. Labs reviewed(Alb 2.3, Na 119, T. bili 1.6, AST/ALT 422/174, Alk Phos 176, Serum alcohol 165). LBM: Not available. Recommendations: 1) Rec. TF with Vital AF 1.2@15ml/hr, increasing rate by 5ml every 5 hrs. to goal rate of 55ml/hr. 2) Rec. 60ml free water flushes every 6 hrs. 3) Rec. obtain Ammonia level. 4) Continue to monitor pt's nutritional status and TF tolerance. 5) Consult RD as nutrition concerns arise. Addendum: 11/13/19 at [address] Amended: Links added.
[2019-11-13] MEDS: M.V.I. IV [ADULT] 10 ML, FOLIC ACID 1 MG, THIAMINE HCL 100 MG in SODIUM CHLORIDE 0.9% 1... IV SCH (15:39)
[2019-11-13 16:22] LABS: ABG BASE EXCESS -0.5 mmol/L (-2.0-3.0); ABG HCO3 25.5 mmol/L (21.0-28.0); ABG PCO2 47 mmHg (35-48)
[2019-11-13 18:24] LABS: CREATININE 0.8 mg/dL (0.5-1.5); POTASSIUM 3.9 mmol/L (3.5-5.1)
[2019-11-13] MEDS: METOPROLOL TARTRATE 25 MG TAB PO SCH (20:50)
[2019-11-13 22:13] LABS: CREATININE 0.8 mg/dL (0.5-1.5); POTASSIUM 3.9 mmol/L (3.5-5.1)
[2019-11-14] VITALS (67 sets, daily range): BP systolic 102–184; BP diastolic 56–117
[2019-11-14] MEDS: AZITHROMYCIN 500MG+NS 250ML 250 ML IV SCH (00:24)
[2019-11-14] MEDS: MEROPENEM 1 GM VIAL IVP SCH ×3 (00:24→16:12)
[2019-11-14] MEDS ORDERED: FENTANYL CITRATE PF 0.05 MG/ML 1,000 MCG in SODIUM CHLORIDE 0.9% 100 ML IVPB SCH (00:30)
[2019-11-14] MEDS ORDERED: FENTANYL 1000MCG+NS 100ML 100 ML ONE (00:38)
[2019-11-14] MEDS: HEPARIN SODIUM 5000UNIT/ML 1ML VIAL SQ SCH ×2 (00:57→12:25)
[2019-11-14] MEDS: OCTREOTIDE ACETATE 500 MCG in SODIUM CHLORIDE 0.9% 97.5 ML IV SCH ×3 (00:59→22:48)
[2019-11-14] MEDS: IPRATROPIUM/ALBUTEROL SULFATE 3 ML SOLUTION IH SCH ×6 (01:08→21:40)
[2019-11-14 02:28] LABS: BASOPHILS % (AUTO) 0.4 % (0.0-5.0); HEMATOCRIT 30.1 % (42-54); LYMPHOCYTES % (AUTO) 9.9 % (21.0-51.0); MEAN CORPUSCULAR HEMOGLOBIN 30.1 pg (27.0-33.0); MEAN CORPUSCULAR HGB CONC 34.2 g/dL (32.0-36.0); MONOCYTES % (AUTO) 16.7 % (3.0-13.0); NEUTROPHILS % (AUTO) 70.4 % (40.0-77.0); PLATELET COUNT (AUTO) 74 K/uL (130-400); RED BLOOD CELL COUNT(AUTO) 3.42 MIL/uL (4.50-6.20); RED CELL DISTRIBUTION WIDTH 14.5 % (11.0-15.5); WHITE BLOOD COUNT (AUTO) 2.3 K/uL (4.8-10.8)
[2019-11-14 02:43] LABS: ALBUMIN 1.9 g/dL (3.5-5.0); BILIRUBIN,TOTAL 1.5 mg/dL (0.2-1.0); CREATININE 0.8 mg/dL (0.5-1.5); TOTAL PROTEIN, SERUM 6.3 g/dL (6.0-8.3)
[2019-11-14] MEDS: MIDAZOLAM HCL 50 MG in SODIUM CHLORIDE 0.9% 50 ML IV SCH (03:40)
[2019-11-14] MEDS: VECURONIUM BROMIDE 50 MG in SODIUM CHLORIDE 0.9% 50 ML IV SCH (05:40)
[2019-11-14 07:11] LABS: CREATININE 0.8 mg/dL (0.5-1.5)
[2019-11-14] MEDS: VANCOMYCIN 1.25 GM in SODIUM CHLORIDE 0.9% 250 ML IV SCH ×2 (08:27→20:19)
[2019-11-14] MEDS: METHYLPREDNISOLONE SOD SUCC 40MG/ML 1ML IVP SCH ×3 (08:29→16:12)
[2019-11-14] MEDS: METOPROLOL TARTRATE 25 MG TAB PO SCH (08:30)
[2019-11-14] MEDS: M.V.I. IV [ADULT] 10 ML, FOLIC ACID 1 MG, THIAMINE HCL 100 MG in SODIUM CHLORIDE 0.9% 1... IV SCH (09:30)
--- NOTE | 2019-11-14 10:10 | NUR ---
DR SCHMID IN TO SEE PT. VECURONIUM TIRATED, AND THEN FENTANYL AND VERSED TURNED OFF
[2019-11-14 10:16] LABS: MEAN CORPUSCULAR HEMOGLOBIN 30.9 pg (27.0-33.0); MEAN CORPUSCULAR VOLUME 88.2 fL (79-99); PLATELET COUNT (AUTO) 80 K/uL (130-400); RED CELL DISTRIBUTION WIDTH 14.7 % (11.0-15.5); WHITE BLOOD COUNT (AUTO) 2.2 K/uL (4.8-10.8)
[2019-11-14 10:29] LABS: ALBUMIN 1.9 g/dL (3.5-5.0); BILIRUBIN,TOTAL 1.4 mg/dL (0.2-1.0); CREATININE 0.8 mg/dL (0.5-1.5); POTASSIUM 4.2 mmol/L (3.5-5.1); TOTAL PROTEIN, SERUM 6.5 g/dL (6.0-8.3)
[2019-11-14] MEDS ORDERED: FUROSEMIDE 10 MG/ML 4ML VIAL IV SCH (10:45)
[2019-11-14] MEDS ORDERED: FENTANYL CITRATE IVPB SCH (11:00)
[2019-11-14] MEDS ORDERED: DEXTROSE 5% IVPB SCH (11:00)
[2019-11-14] MEDS ORDERED: WATER IVPB SCH (11:00)
[2019-11-14 11:20] LABS: BAND NEUTROPHILS % (MANUAL) 12 % (0-2); LYMPHOCYTES % (MANUAL) 4 % (22-44); MONOCYTES % (MANUAL) 16 % (2-9); PLATELET MORPHOLOGY COMMENT DECREASED; REACTIVE LYMPHOCYTES 4 % (0-0); SEGMENTED NEUTROPHILS % 64 % (40-70)
--- NOTE | 2019-11-14 12:33 | NUR ---
DR SCHMID IN TO SEE PT. EYES ARE 3MM EQUAL SLUGGISH. PT WITHDRAWLS SLUGISHLY TO PAIN AT THIS TIME. PEEP DOWN FROM 14 TO 10. WILL DRAW ABG IN 1 HR
[2019-11-14 13:23] LABS: ABG BASE EXCESS 3.1 mmol/L (-2.0-3.0); ABG HCO3 27.7 mmol/L (21.0-28.0); ABG OXYGEN SATURATION 97.1 % (95.0-99.0); ABG PCO2 42 mmHg (35-48)
[2019-11-14 15:11] LABS: CREATININE 0.9 mg/dL (0.5-1.5); POTASSIUM 4.1 mmol/L (3.5-5.1)
--- NOTE | 2019-11-14 15:18 | NUR ---
DC PLAN VISITED WITH PATIENT. PATIENT VENTED. FAMILY AT BEDSIDE. PATIENT NOT NO CHILDREN FATHER WOULD BE DECISION MAKER. SISTER RIVER IN ROOM WELL [phone]. ACCORDING TO FATHER PATIENT APPEARS TO BE HOMELESS. DOES NOT HAVE ANY EQUIPMENT OR SERVICES. Addendum: 11/14/19 at 1520 by REE VALENTIN RN CM Amended: Links added.
[2019-11-14] MEDS: PANTOPRAZOLE SODIUM 80 MG in SODIUM CHLORIDE 0.9% 100 ML IV SCH (16:13)
[2019-11-14 18:44] LABS: CREATININE 0.9 mg/dL (0.5-1.5); POTASSIUM 3.9 mmol/L (3.5-5.1)
[2019-11-14] MEDS: FAMOTIDINE/PF 20 MG/2 ML VIAL IV SCH (21:10)
[2019-11-14] MEDS: METOPROLOL TARTRATE 50 MG TAB PO SCH (21:10)
[2019-11-14 22:27] LABS: CREATININE 0.8 mg/dL (0.5-1.5); POTASSIUM 3.7 mmol/L (3.5-5.1)
[2019-11-14] MEDS ORDERED: OCTREOTIDE ACETATE 200 MCG/ML 5 ML VIAL ONE (22:38)
[2019-11-14] MEDS ORDERED: SODIUM CHLORIDE 0.9% 100 ML IV ONE (22:44)
[2019-11-15] VITALS (38 sets, daily range): BP systolic 131–177; BP diastolic 71–124
[2019-11-15] MEDS: MEROPENEM 1 GM VIAL IVP SCH ×4 (01:42→23:06)
[2019-11-15] MEDS: AZITHROMYCIN 500MG+NS 250ML 250 ML IV SCH ×2 (01:42→23:06)
[2019-11-15] MEDS: METHYLPREDNISOLONE SOD SUCC 40MG/ML 1ML IVP SCH ×3 (01:42→20:51)
[2019-11-15] MEDS: HEPARIN SODIUM 5000UNIT/ML 1ML VIAL SQ SCH ×3 (01:44→23:06)
[2019-11-15] MEDS: IPRATROPIUM/ALBUTEROL SULFATE 3 ML SOLUTION IH SCH ×6 (01:53→22:20)
[2019-11-15 04:34] LABS: BASOPHILS % (AUTO) 0.3 % (0.0-5.0); HEMATOCRIT 33.4 % (42-54); LYMPHOCYTES % (AUTO) 11.4 % (21.0-51.0); MEAN CORPUSCULAR HEMOGLOBIN 30.4 pg (27.0-33.0); MEAN CORPUSCULAR HGB CONC 34.1 g/dL (32.0-36.0); MEAN CORPUSCULAR VOLUME 89.1 fL (79-99); NEUTROPHILS % (AUTO) 72.3 % (40.0-77.0); PLATELET COUNT (AUTO) 106 K/uL (130-400); RED BLOOD CELL COUNT(AUTO) 3.75 MIL/uL (4.50-6.20); RED CELL DISTRIBUTION WIDTH 15.1 % (11.0-15.5); WHITE BLOOD COUNT (AUTO) 3.5 K/uL (4.8-10.8)
[2019-11-15 04:55] LABS: ALBUMIN 2.1 g/dL (3.5-5.0); BILIRUBIN,TOTAL 1.5 mg/dL (0.2-1.0); POTASSIUM 3.9 mmol/L (3.5-5.1); TOTAL PROTEIN, SERUM 6.9 g/dL (6.0-8.3)
[2019-11-15 05:02] LABS: CREATININE 0.8 mg/dL (0.5-1.5)
[2019-11-15] MEDS: PANTOPRAZOLE SODIUM 80 MG in SODIUM CHLORIDE 0.9% 100 ML IV SCH (06:34)
[2019-11-15] MEDS: FAMOTIDINE/PF 20 MG/2 ML VIAL IV SCH (08:11)
[2019-11-15] MEDS: METOPROLOL TARTRATE 50 MG TAB PO SCH ×2 (08:12→20:51)
[2019-11-15] MEDS: FUROSEMIDE 10 MG/ML 4ML VIAL IV SCH (08:12)
[2019-11-15] MEDS: VANCOMYCIN 1.5 GM in SODIUM CHLORIDE 0.9% 250 ML IV SCH ×2 (09:20→20:52)
[2019-11-15] MEDS: M.V.I. IV [ADULT] 10 ML, FOLIC ACID 1 MG, THIAMINE HCL 100 MG in SODIUM CHLORIDE 0.9% 1... IV SCH (09:20)
--- NOTE | 2019-11-15 09:30 | NUR ---
DR SCHMID IN TO SEE PTS. MADE CHANGES TO VENT AND MEDICATIONS
[2019-11-15 10:06] LABS: CRP QUANTITATIVE 222.7 mg/L (0.00-9.0)
--- NOTE | 2019-11-15 10:30 | NUR ---
TAKEN TO CT SCAN OF HEAD TOLERATED WITHOUT INCIDENT, VS STABLE PER DR SCHMID, NO CT OF CHEST NEEDED
[2019-11-15] MEDS: LEVETIRACETAM 1,000 MG in SODIUM CHLORIDE 0.9% 100 ML IV SCH ×3 (11:30→20:51)
--- NOTE | 2019-11-15 11:30 | NUR ---
DR TOURE REVIEWED CT SCAN WITH FATHER OF PATIENT WHO MAKES DECISIONS. EXPLAINED POOR PROGNOSIS. SPOKE ABOUT DNR IF PTS FATHER WANTS.
[2019-11-15 11:49] LABS: ABG BASE EXCESS 6.1 mmol/L (-2.0-3.0); ABG OXYGEN SATURATION 97.6 % (95.0-99.0); ABG PCO2 40 mmHg (35-48)
[2019-11-15] MEDS ORDERED: COMPOUND IV MISC 1 EACH IVSOLN MISC PRN (12:00)
[2019-11-15] MEDS: LABETALOL HCL 5 MG/ML 20ML VIAL IV PRN (12:13)
--- NOTE | 2019-11-15 14:00 | NUR ---
DR SCHMID IN TO SEE PT AGAIN, SPOKE TO PTS FATHER, EXPLAINED POOR PROGNOSIS
--- NOTE | 2019-11-15 15:00 | NUR ---
PTS SISTER IN TO VISIT PT. EXPLAINED THAT PT AT THIS TIME IS IN DECORTICATE POSITION WHEN STIMULATED. DOES NOT WITHDRAW TO PAIN, OPENS EYES BUT DOES NOT TRACK.
--- NOTE | 2019-11-15 16:30 | NUR ---
RD FOLLOW UP NOTE Pt tolerating tube feedings of Vital AF 1.2 @40mls/hr, at time of screen. Pt intubated and limited responsiveness as per EMR. RD to continue to monitor. Please notify RD as additional nutrition concerns arise. Thank you. Addendum: 11/15/19 at [address] Amended: Links added.
--- NOTE | 2019-11-15 17:00 | NUR ---
C consult Patient assessed as ordered. Patient has large callus to right foot and smaller callus to left great toe. Spoke with patient's nurse, Magalys HANKS regarding care. At this time, care includes keeping calluses clean and dry. If status of calluses changes, podiatry may be consulted for further intervention.
[2019-11-15] MEDS ORDERED: FENTANYL 1000MCG+NS 100ML 100 ML ONE (20:12)
[2019-11-15] MEDS: MIDAZOLAM 50MG-0.9% NS 50ML 50 ML BAG IV SCH (20:14)
[2019-11-15] MEDS ORDERED: FENTANYL CITRATE PF 0.05 MG/ML 1,000 MCG in SODIUM CHLORIDE 0.9% 100 ML IVPB SCH (20:15)
[2019-11-15] MEDS: PANTOPRAZOLE 40 MG/VIAL IVP SCH (20:50)
[2019-11-16] VITALS (25 sets, daily range): BP systolic 131–172; BP diastolic 76–107
[2019-11-16] MEDS: IPRATROPIUM/ALBUTEROL SULFATE 3 ML SOLUTION IH SCH ×6 (01:43→21:20)
[2019-11-16] MEDS: MIDAZOLAM 50MG-0.9% NS 50ML 50 ML BAG IV SCH (04:14)
[2019-11-16 05:30] LABS: BASOPHILS % (AUTO) 0.3 % (0.0-5.0); HEMATOCRIT 32.2 % (42-54); LYMPHOCYTES % (AUTO) 9.3 % (21.0-51.0); MEAN CORPUSCULAR HEMOGLOBIN 30.6 pg (27.0-33.0); MEAN CORPUSCULAR HGB CONC 33.9 g/dL (32.0-36.0); MEAN CORPUSCULAR VOLUME 90.4 fL (79-99); MONOCYTES % (AUTO) 11.1 % (3.0-13.0); NEUTROPHILS % (AUTO) 76.9 % (40.0-77.0); PLATELET COUNT (AUTO) 100 K/uL (130-400); RED BLOOD CELL COUNT(AUTO) 3.56 MIL/uL (4.50-6.20); RED CELL DISTRIBUTION WIDTH 15.9 % (11.0-15.5); WHITE BLOOD COUNT (AUTO) 3.8 K/uL (4.8-10.8)
[2019-11-16 05:43] LABS: ALBUMIN 1.9 g/dL (3.5-5.0); CREATININE 0.6 mg/dL (0.5-1.5); MAGNESIUM 2.3 mg/dL (1.80-2.40); PHOSPHORUS 3.1 mg/dL (2.5-4.9); POTASSIUM 3.5 mmol/L (3.5-5.1)
[2019-11-16 06:11] LABS: B-TYPE NATRIURETIC PEPTIDE 762 pg/mL (0-100)
[2019-11-16] MEDS: MEROPENEM 1 GM VIAL IVP SCH ×3 (09:00→23:12)
[2019-11-16] MEDS: FUROSEMIDE 10 MG/ML 4ML VIAL IV SCH (09:00)
[2019-11-16] MEDS: LEVETIRACETAM 1,000 MG in SODIUM CHLORIDE 0.9% 100 ML IV SCH ×2 (09:00→20:01)
[2019-11-16] MEDS: PANTOPRAZOLE 40 MG/VIAL IVP SCH ×2 (09:01→20:01)
[2019-11-16] MEDS: METHYLPREDNISOLONE SOD SUCC 40MG/ML 1ML IVP SCH (09:01)
[2019-11-16] MEDS: METOPROLOL TARTRATE 50 MG TAB PO SCH ×2 (09:01→20:01)
[2019-11-16] MEDS: VANCOMYCIN 1.5 GM in SODIUM CHLORIDE 0.9% 250 ML IV SCH ×2 (09:11→23:11)
[2019-11-16] MEDS: FENTANYL 1000MCG+NS 100ML IV.SOLN IV SCH (09:33)
[2019-11-16] MEDS ORDERED: MIDAZOLAM 50MG-0.9% NS 50ML 50 ML IV SCH (09:45)
[2019-11-16] MEDS: M.V.I. IV [ADULT] 10 ML, FOLIC ACID 1 MG, THIAMINE HCL 100 MG in SODIUM CHLORIDE 0.9% 1... IV SCH (10:10)
[2019-11-16 11:47] LABS: ABG BASE EXCESS 8.3 mmol/L (-2.0-3.0); ABG PCO2 37 mmHg (35-48)
[2019-11-16] MEDS: LACTULOSE 20 GM/30 ML UDCUP PO SCH ×2 (12:25→20:01)
[2019-11-16] MEDS: HEPARIN SODIUM 5000UNIT/ML 1ML VIAL SQ SCH ×2 (12:31→23:12)
[2019-11-16] MEDS: LIDOCAINE HCL-MPF 1% 2ML VIAL IV PRN (14:26)
[2019-11-16] MEDS: POTASSIUM CHLORIDE 20MEQ/100ML 100 ML IV PRN (14:26)
[2019-11-16] MEDS: LABETALOL HCL 5 MG/ML 20ML VIAL IV PRN (15:22)
[2019-11-16] MEDS: MIDAZOLAM 50MG-0.9% NS 50ML 50 ML IV SCH (18:44)
[2019-11-17] VITALS (26 sets, daily range): BP systolic 119–169; BP diastolic 58–105
[2019-11-17] MEDS: MIDAZOLAM 50MG-0.9% NS 50ML 50 ML IV SCH ×2 (00:40→15:14)
[2019-11-17] MEDS: FENTANYL 1000MCG+NS 100ML IV.SOLN IV SCH ×2 (00:40→15:13)
[2019-11-17] MEDS: AZITHROMYCIN 500MG+NS 250ML 250 ML IV SCH ×2 (01:00→23:47)
[2019-11-17] MEDS: IPRATROPIUM/ALBUTEROL SULFATE 3 ML SOLUTION IH SCH ×6 (01:04→21:20)
[2019-11-17 03:44] LABS: BASOPHILS % (AUTO) 0.3 % (0.0-5.0); EOSINOPHILS % (AUTO) 0.2 % (0.0-8.0); HEMATOCRIT 35.1 % (42-54); LYMPHOCYTES % (AUTO) 8.8 % (21.0-51.0); MEAN CORPUSCULAR HEMOGLOBIN 30.4 pg (27.0-33.0); MEAN CORPUSCULAR HGB CONC 32.5 g/dL (32.0-36.0); MEAN CORPUSCULAR VOLUME 93.6 fL (79-99); MONOCYTES % (AUTO) 8.3 % (3.0-13.0); NEUTROPHILS % (AUTO) 77.4 % (40.0-77.0); PLATELET COUNT (AUTO) 115 K/uL (130-400); RED BLOOD CELL COUNT(AUTO) 3.75 MIL/uL (4.50-6.20); RED CELL DISTRIBUTION WIDTH 16.5 % (11.0-15.5); WHITE BLOOD COUNT (AUTO) 5.8 K/uL (4.8-10.8)
[2019-11-17 04:02] LABS: CREATININE 0.6 mg/dL (0.5-1.5); MAGNESIUM 2.3 mg/dL (1.80-2.40)
[2019-11-17 04:06] LABS: ABG BASE EXCESS 6.4 mmol/L (-2.0-3.0); ABG HCO3 31.2 mmol/L (21.0-28.0); ABG OXYGEN SATURATION 95.6 % (95.0-99.0); ABG PCO2 45 mmHg (35-48)
[2019-11-17] MEDS: POTASSIUM CHLORIDE 20MEQ/100ML 100 ML IV PRN ×3 (04:30→17:37)
[2019-11-17] MEDS: LIDOCAINE HCL-MPF 1% 2ML VIAL IV PRN ×3 (04:30→17:37)
[2019-11-17] MEDS ORDERED: VANCOMYCIN 1.5 GM in SODIUM CHLORIDE 0.9% 250 ML IV SCH (08:00)
[2019-11-17] MEDS: FUROSEMIDE 10 MG/ML 4ML VIAL IV SCH (08:47)
[2019-11-17] MEDS: PANTOPRAZOLE 40 MG/VIAL IVP SCH (08:47)
[2019-11-17] MEDS: MEROPENEM 1 GM VIAL IVP SCH (08:49)
[2019-11-17] MEDS: LACTULOSE 20 GM/30 ML UDCUP PO SCH (08:50)
[2019-11-17] MEDS: METOPROLOL TARTRATE 50 MG TAB PO SCH ×2 (08:50→21:08)
[2019-11-17] MEDS: LEVETIRACETAM 1,000 MG in SODIUM CHLORIDE 0.9% 100 ML IV SCH ×2 (08:55→21:08)
[2019-11-17] MEDS ORDERED: METHYLPREDNISOLONE SOD SUCC 40MG/ML 1ML IVP SCH (09:00)
[2019-11-17] MEDS: FOLIC ACID 1 MG TABLET PO SCH (10:45)
[2019-11-17] MEDS: MULTIVITAMIN TABLET PO SCH (10:45)
[2019-11-17] MEDS: THIAMINE HCL 100 MG TABLET PO SCH (10:45)
[2019-11-17] MEDS: HEPARIN SODIUM 5000UNIT/ML 1ML VIAL SQ SCH ×3 (11:22→23:52)
[2019-11-17] MEDS: LABETALOL HCL 5 MG/ML 20ML VIAL IV PRN (13:36)
[2019-11-17] MEDS ORDERED: CEFTRIAXONE SODIUM 1 GM IVP SCH (16:00)
[2019-11-17 17:00] LABS: CREATININE 0.7 mg/dL (0.5-1.5); POTASSIUM 3.3 mmol/L (3.5-5.1)
[2019-11-18] VITALS (23 sets, daily range): BP systolic 109–165; BP diastolic 63–105
[2019-11-18] MEDS: MIDAZOLAM 50MG-0.9% NS 50ML 50 ML IV SCH ×2 (00:16→10:03)
[2019-11-18] MEDS: FENTANYL 1000MCG+NS 100ML IV.SOLN IV SCH ×2 (00:16→15:01)
[2019-11-18] MEDS: IPRATROPIUM/ALBUTEROL SULFATE 3 ML SOLUTION IH SCH ×4 (01:01→14:10)
[2019-11-18] MEDS: HEPARIN SODIUM 5000UNIT/ML 1ML VIAL SQ SCH (06:41)
[2019-11-18] MEDS: THIAMINE HCL 100 MG TABLET PO SCH (08:30)
[2019-11-18] MEDS: METOPROLOL TARTRATE 50 MG TAB PO SCH (08:30)
[2019-11-18] MEDS: MULTIVITAMIN TABLET PO SCH (08:30)
[2019-11-18] MEDS: FOLIC ACID 1 MG TABLET PO SCH (08:30)
[2019-11-18] MEDS: LEVETIRACETAM 1,000 MG in SODIUM CHLORIDE 0.9% 100 ML IV SCH (08:31)
[2019-11-18] MEDS ORDERED: PANTOPRAZOLE 40 MG/VIAL IVP SCH (09:00)
[2019-11-18 09:39] LABS: CREATININE 0.6 mg/dL (0.5-1.5); MAGNESIUM 2.1 mg/dL (1.80-2.40); POTASSIUM 3.5 mmol/L (3.5-5.1)
[2019-11-18] MEDS ORDERED: LIDOCAINE HCL-MPF 1% 2ML VIAL IV PRN (09:45)
[2019-11-18] MEDS ORDERED: POTASSIUM CHLORIDE 20 MEQ ERTAB PO PRN (09:45)
[2019-11-18] MEDS ORDERED: POTASSIUM CHLORIDE 20MEQ/100ML 100 ML IV PRN (09:45)
[2019-11-18] MEDS ORDERED: POTASSIUM CHLORIDE 10% ELIXIR 20 MEQ/15 ML UDCUP PO PRN (09:45)
--- NOTE | 2019-11-18 11:30 | NUR ---
WITHDRAWAL/PALLIATIVE Sw met with pt's sister Jaylyn at bedside. Per sister, she and father are considering withdrawal of life support . Sister states that they have discussed this with MDs and feel that pt is already gone , "it's just his body". Sister states that pt has an estranged daughter Alma Kim [phone] in [place]. Family has been in touch with pt's daughter and made her aware of situation but daughter not coming to see pt. Sister reports daughter is in same situation as her father(pt), homeless, alcoholic,Bipolar, depression and they are not sure her level of understanding of situation nor decision making. Sister states her father is having a hard time with making final decision to withdraw and told sister it was up to her. SW provided emotional support and explained process of withdrawal, comfort measures and hospice. (Pt is self pay and would not qualify for inpt hospice) Sister appreciative of explanation and stated she is more comfortable now moving forward since she understands what will happen. Daughter asking that I explain this to her father so that he can have peace with it too. Nurse Lam to contact Sw when father present so that I can speak with him.
--- NOTE | 2019-11-18 12:38 | NUR ---
f/u visit Lexy met with pt's father and sister. Father extremely emotional and states he has accepted that he has to make this decision for his son and is ready to sign form to withdraw life support. Pt's sister has spoken to pt's daughter Alma and informed her of situation and that they have decided to withdraw life support. Daughter voiced understanding. SW attempted to reach daughter at [phone]. Daughter answered the phone. When I told her who I was and where I was calling from, daughter hung up on me. I called daughter back and cell went directly to voice mail. Sw left message and left contact #. Sister attempted to reach Alma as well and it when to voice mail as well. Father wants to proceed with withdrawal and will sign forms. Lam montague informed and will notify Dr Whitley.
--- NOTE | 2019-11-18 13:41 | NUR ---
ORGAN DONATION SW call to room by family. Father states he is considering organ and tissue donation. Informed father that I would tell Lam nurse, and he can have someone speak to him and pt's sister directly to ensure they have correct information. Father appreciative. Encouraged father and sister to go eat, we are still waiting watermelon harvesting supervisor backs. Lexy spoke to Lam who states he is wanting for call back from [facility], he will inform them.
--- NOTE | 2019-11-18 15:21 | NUR ---
GORGE FOLLOW UP Pt tolerating current tube feeding regimen of Vital AF 1.2 @55mls/hr. Recommend to continue. Pt also post cardiac arrest, Family considering comfort measures/hospice as per EMR. RD to continue to monitor. Please notify GORGE as additional nutrition concerns arise. Thank you. Addendum: 11/18/19 at [address] Amended: Links added.
[2019-11-18] MEDS: MORPHINE SULFATE 2 MG/ML 1ML SYG IVP PRN ×4 (15:26→22:17)
[2019-11-18] MEDS: LORAZEPAM 2 MG/ML 1 ML VIAL IVP PRN ×4 (15:26→22:08)
--- NOTE | 2019-11-18 16:16 | NUR ---
WITHDRAWAL Sw present when father signed withdrawal form. emt i/99 visited with family and pt and gave pt last rites. Life support was withdrawn. Nurse informed of [facility] hospices are available if needed but currently no beds at [facility]
[2019-11-19] VITALS (11 sets, daily range): BP systolic 133–164; BP diastolic 86–101
[2019-11-19] MEDS: LORAZEPAM 2 MG/ML 1 ML VIAL IVP PRN ×6 (00:44→23:38)
[2019-11-19] MEDS: MORPHINE SULFATE 2 MG/ML 1ML SYG IVP PRN ×4 (00:45→15:50)
--- NOTE | 2019-11-19 09:44 | NUR ---
No family at bedside to discuss dcp. Sw will f/u
--- NOTE | 2019-11-19 11:12 | NUR ---
[facility] with PLACEMENT Sw met with pt's sister regarding dcp: Sister states she and father are agreeable to hospice with placement. SW educated on [facility] and hospice homes. Sister is aware that [facility] are full at this time. Sister signed consent to begin locating [facility] hospice agency. Sw spoke to [phone] at [facility] [phone]. They are a new hospice and are needing [facility] pts. Lexy faxed pt info to Rodney at [phone]. [facility] to come meet with family and place pt on waiting list a [facility]. CM aware
--- NOTE | 2019-11-19 12:59 | NUR ---
[facility] DENIED Sw recd call From [facility], they do not have contracts with hospice homes, can only take pt if family willing to do hospice at home. Family is unable to care for pt at home. [place] has no [facility] beds [facility] has no [facility] beds [facility] no [facility] beds [facility] willing to review. pt in fo faxed. [phone] [facility] has no beds, [facility] has no beds [facility] has no [facility] beds [facility] has no beds Brooke to keep looking for [facility] bed BROOKE spoke to pt's father and informed of above. Home with (elderly) father is not an option
--- NOTE | 2019-11-19 14:18 | NUR ---
REPORT CALLED TO SANGEETHA AND WILL TRANSFER BY SPECIAL [facility].
--- NOTE | 2019-11-19 15:48 | NUR ---
[facility] ACCEPTED Sw made referral to [facility] hospice. Dr Lester Razo, medical appointment scheduler for [facility] was in building and evaluated pt. Dr Razo accepted [facility] pt, who will need placement at either [facility] or [facility]. Lexy spoke to Joey [phone], liaison and faxed pt info to [facility] office. Bill to make contact with family and and work on placement. Joey aware that [facility] and [facility] are full and will f/u on Friday.
--- NOTE | 2019-11-19 16:00 | NUR ---
NO SIGNS OF DISTRESS OBSERVED. CONT ON COMFORT MEASURES . WILL CONT TO MONITOR
--- NOTE | 2019-11-19 19:20 | NUR ---
ICU bed Addendum: 11/20/19 at 0234 by EAGLE FRAIRE RN RN Amended: Links added.
--- NOTE | 2019-11-19 19:20 | NUR ---
PM Assessment Received pt with no family around, per report case is total comfort measure awaiting bed availability to either [facility] or [facility] for hospice care. Pt noted quite & calm at this time, unresponsive to any verbal communication, bilateral arms decorticates when stimulated. 2 IV access discontinued aseptically due to negative blood return, left antecubital & right forearm access with catheter tip intact.
--- NOTE | 2019-11-19 22:00 | NUR ---
Mouth care rendered at this time.
--- NOTE | 2019-11-19 22:45 | NUR ---
Re: stage 1 ulcer Pt was a transfer from the unit, noted with stage 1 ulcer to bilateral buttocks & rash from coccyx to josias area, cleanse with soap & water, applied skin barrier cream. Bilateral buttocks noted with 1x1CM circumference dark skin discoloration, Turn Q 2 observed, kept on an ICU [facility] bed, program on automatic turning position.
[2019-11-20] VITALS: BP 160/87
[2019-11-20] MEDS: MORPHINE SULFATE 2 MG/ML 1ML SYG IVP PRN ×7 (00:23→16:19)
--- NOTE | 2019-11-20 01:30 | NUR ---
Mouth care rendered at this time.
[2019-11-20 04:00] VITALS: BP 153/95
--- NOTE | 2019-11-20 05:30 | NUR ---
Mouth care rendered at this time.
[2019-11-20] MEDS: LORAZEPAM 2 MG/ML 1 ML VIAL IVP PRN ×4 (07:39→15:47)
[2019-11-20 08:00] VITALS: BP 157/101
--- NOTE | 2019-11-20 08:42 | NUR ---
comfort measures Addendum: 11/20/19 at 0842 by SANGEETHA SALDIVAR RN RN Amended: Links added.
[2019-11-20 09:16] LABS: BASOPHILS % (AUTO) 0.2 % (0.0-5.0); EOSINOPHILS % (AUTO) 0.4 % (0.0-8.0); HEMATOCRIT 38.6 % (42-54); LYMPHOCYTES % (AUTO) 5.6 % (21.0-51.0); MEAN CORPUSCULAR HEMOGLOBIN 30.4 pg (27.0-33.0); MEAN CORPUSCULAR HGB CONC 31.6 g/dL (32.0-36.0); MEAN CORPUSCULAR VOLUME 96.3 fL (79-99); MONOCYTES % (AUTO) 4.3 % (3.0-13.0); NEUTROPHILS % (AUTO) 88.3 % (40.0-77.0); PLATELET COUNT (AUTO) 210 K/uL (130-400); RED BLOOD CELL COUNT(AUTO) 4.01 MIL/uL (4.50-6.20); RED CELL DISTRIBUTION WIDTH 16.2 % (11.0-15.5); WHITE BLOOD COUNT (AUTO) 12.1 K/uL (4.8-10.8)
[2019-11-20 09:55] LABS: CREATININE 0.7 mg/dL (0.5-1.5); MAGNESIUM 2.2 mg/dL (1.80-2.40); POTASSIUM 3.6 mmol/L (3.5-5.1)
[2019-11-20 11:00] VITALS: BP 152/101
--- NOTE | 2019-11-20 12:30 | NUR ---
FAMILY SPOKE WITH BIGG TEJEDA ON STATUS . RIVER SISTER OF PATIENT VOICED HER ACCEPTANCE OF NOT PLACING A FEEDING TUBE FOR PATIENT AND STATED JUST WANTS HER BROTHER TO NOT SUFFER AND BE COMFORTABLE .AT THIS TIME LABS WERE DISCONTINUED , WILL CONT ON SAME COMFORT MEDS FOR PAIN AND RESP , ON CLARIFICATION FOR TUBE FEEDING , ORDER LEFT ACTIVE BY BIGG TEJEDA IN CASE FAMILY DECIDED OTHER MAGANA. FOR NOW SISTER STATED NO TUBE FEEDING . PATIENT CONT ON PRN MEDS AND ORAL CARE, TURN Q 2 .. WILL CONT TO MONITOR
--- NOTE | 2019-11-20 14:57 | NUR ---
patient with Resp even and Unlabored..no signs of distress observed .. will cont to monitor
[2019-11-20 16:00] VITALS: BP 147/85
[2019-11-20 19:30] VITALS: BP 161/93
--- NOTE | 2019-11-20 20:45 | NUR ---
Mouth care rendered at this time.
[2019-11-21] VITALS: BP 162/93
--- NOTE | 2019-11-21 00:50 | NUR ---
Mouth care rendered at this time.
[2019-11-21] MEDS: MORPHINE SULFATE 2 MG/ML 1ML SYG IVP PRN ×8 (01:00→22:01)
[2019-11-21 04:00] VITALS: BP 161/97
[2019-11-21] MEDS: LORAZEPAM 2 MG/ML 1 ML VIAL IVP PRN ×5 (05:46→23:00)
--- NOTE | 2019-11-21 06:15 | NUR ---
Mouth care rendered at this time.
--- NOTE | 2019-11-21 07:30 | NUR ---
on comfort measures Addendum: 11/21/19 at 0732 by SANGEETHA SALDIVAR RN RN Amended: Links added.
[2019-11-21 08:00] VITALS: BP 153/95
--- NOTE | 2019-11-21 10:30 | NUR ---
cont with turn q 2 , medication as ordered prn for comfort . oral care provided . will cont to monitor
[2019-11-21 11:41] VITALS: BP 154/90
[2019-11-21 16:00] VITALS: BP 152/88
--- NOTE | 2019-11-21 18:50 | NUR ---
PATIENT WITH FEVER , SISTER AT BEDSIDE . GAVE MEDICATION FOR COMFORT FOR RESP 22, LABORED BREATHING . EXPLAINED TO SISTER WILL ALSO PROVIDE COOLING MEASURE FOR TEMP.. SISTER AGREED .POST MED PATIENT NOW WITH RESP UNLABORED ,[place] . WILL CONT TO MONITOR
[2019-11-21 19:00] VITALS: BP 129/72
[2019-11-22] VITALS (7 sets, daily range): BP systolic 87–135; BP diastolic 51–75
[2019-11-22] MEDS: MORPHINE SULFATE 2 MG/ML 1ML SYG IVP PRN ×5 (00:52→21:49)
--- NOTE | 2019-11-22 13:45 | NUR ---
Hospice Follow up SW contacted Joey Barcenas Zoie Match Maker. Joey informed BROOKE that he had not made contact with family but would contact and meet with family. BROOKE spoke to patient's nurse, Tanja, and informed Bill that patient was not responding, not eating and was on IV morphine and IV Ativan. BROOKE will follow up with patient and family once Hospice had met with them.
--- NOTE | 2019-11-22 14:32 | NUR ---
GORGE FOLLOW UP Pt with referral to Hospice. Comfort measures in place. Pt tolerating Tube feedings. Recommend to continue with plan of care. Please notify GORGE as concerns arise. Thank you. Addendum: 11/22/19 at [address] Amended: Links added.
--- NOTE | 2019-11-22 17:55 | NUR ---
[facility] BROOKE spoke with Joey Barcenas, [facility] Ophthalmic Asst and he informed BROOKE that patient was accepted pending placement. Joey stated that he had spoken to patient's father about patient's not being accepted at [facility] and [facility]. Joey stated that father had mentioned that [facility] was too far for patient to go since family lived in [place]. Family was going to check to see if they could make room for patient to go home with hospice. BROOKE contacted [facility] and confirmed that bed was available. BROOKE contacted patient's father, Mark Kim Sr, [phone], and informed him of bed available at [facility]. Patient's father gave consent. CHANDLER/Choice was completed and placed in chart. Patient's father was provided number to [facility] to schedule a tour. BROOKE contacted Joey with [facility] Hospice to notify him of father's consent for [facility]. Joey will have have patient's information sent to [facility] for review. Pending acceptance. Out of Hospital Do Not Resuscitate will need to be completed. Gurdeep HERNANDEZ, and patient's nurse, Tanja, made aware.
[2019-11-22] MEDS ORDERED: ACETAMINOPHEN 650 MG SUPPOSITORY RC ONE ×2 (21:00→22:06)
[2019-11-23] MEDS: MORPHINE SULFATE 2 MG/ML 1ML SYG IVP PRN ×5 (00:24→11:23)
[2019-11-23 03:57] VITALS: BP 99/58
[2019-11-23 08:00] VITALS: BP 132/72
--- NOTE | 2019-11-23 08:58 | NUR ---
Hospice Follow up SW attempted to contact Joey Barcenas with [facility] regarding [facility] but was only able to leave a message. SW will continue to follow up. Family pending to sign Out of Hospital Do Not Resuscitate. DAVID, Gurdeep Hardy, michael.
--- NOTE | 2019-11-23 11:00 | NUR ---
Morphine 2 mg administered IVP for symptoms of pain, tachycardia, and agonal breathing. Sister at bedside, stated he looked a bit restless. Patient visibly calmed, breathing slowed after administration of morphine. Bed low, locked.
--- NOTE | 2019-11-23 14:00 | NUR ---
Respirations ceased, no apical pulse noted. Patient pronounced by Magazine Journalist Fang Bee RN. Family called and asked to come to hospital. Sister stated she would come shortly. Father stated he was in the middle of something but daughter would go by.
--- NOTE | 2019-11-23 15:07 | NUR ---
HOSPICE Patient is still pending acceptance at [facility]. Patient is not doing well today as per patient's nurse. Dr. Peterson informed SW that patient is not stable to move to [facility] even if he is accepted. stated that he will reassess patient on 11/24/2019. Joey Barcenas, Turret Lathe Set Up Operator and CM,Gurdeep Hardy, made aware.
== END 2019-11-23 16:20 | disposition expired | DRG 870 ==
LOC: EDH 20:27 → EDHIP 20:28 → 2BH 23:53 → 4CH 11-19 14:42
PROVIDERS: ADMIT Internal Medicine; ATTEND Internal Medicine
PROC: 5A12012 Performance of Cardiac Output, Single, Manual (ICD-10-PCS; principal; 2019-11-13)
PROC: 5A1955Z Respiratory Ventilation, Greater than 96 Consecutive Hours (ICD-10-PCS; 2019-11-13)
PROC: 0BH17EZ Insertion of Endotracheal Airway into Trachea, Via Natural or Artificial Opening (ICD-10-PCS; 2019-11-13)
PROC: 5A09357 Assistance with Respiratory Ventilation, Less than 24 Consecutive Hours, Continuous Positive Airway Pressure (ICD-10-PCS; 2019-11-22)
PROC: 5A09357 Assistance with Respiratory Ventilation, Less than 24 Consecutive Hours, Continuous Positive Airway Pressure (ICD-10-PCS; 2019-11-23)
DX: A41.9 Sepsis, unspecified organism (principal); J15.9 Unspecified bacterial pneumonia; J96.01 Acute respiratory failure with hypoxia; J69.0 Pneumonitis due to inhalation of food and vomit; E87.1 Hypo-osmolality and hyponatremia; M62.82 Rhabdomyolysis; N39.0 Urinary tract infection, site not specified; I47.2 Ventricular tachycardia; G93.1 Anoxic brain damage, not elsewhere classified; E44.0 Moderate protein-calorie malnutrition; E87.2 Acidosis; F10.239 Alcohol dependence with withdrawal, unspecified; N17.9 Acute kidney failure, unspecified; K92.2 Gastrointestinal hemorrhage, unspecified; Z51.5 Encounter for palliative care; Z66 Do not resuscitate; I46.2 Cardiac arrest due to underlying cardiac condition; R65.20 Severe sepsis without septic shock; K52.9 Noninfective gastroenteritis and colitis, unspecified; E83.42 Hypomagnesemia; E87.6 Hypokalemia; E87.8 Other disorders of electrolyte and fluid balance, not elsewhere classified; F10.229 Alcohol dependence with intoxication, unspecified; Z60.2 Problems related to living alone; G25.3 Myoclonus; K74.60 Unspecified cirrhosis of liver; Y90.6 Blood alcohol level of 120-199 mg/100 ml; Z68.27 Body mass index [BMI] 27.0-27.9, adult
CPT/HCPCS: 31500; 36415; 36600; 70450; 71045; 74176; 76700; 80048; 80053; 80202; 80305; 81001; 82040; 82140; 82550; 82803; 82948; 83605; 83690; 83735; 83874; 83880; 84100; 84145; 84484; 85025; 85610; 85730; 86140; 87040; 87071; 87088; 87205; 87804; 92950; 93005; 93306; 93356; 94002; 94003; 94640; 94667; 95816; 99291; C9113; G0378; G0480; J0171; J0456; J0696; J1644; J1940; J1953; J2060; J2185; J2310; J2354; J2405; J2543; J2704; J2920; J3010; J3370; J3411; J3475; J3480; J3490; J7030; J7120